=== PATIENT | male | born 1975 | race Hispanic/Latino ===

== ENCOUNTER 2021-01-23 08:44 | Emergency (ER) | payer BC ==
--- OUTSIDE RECORDS SUMMARY | 2021-01-23 08:48 | XMS REPORT | Continuity of Care Document ---
:1975 Author Organization [facility] t Address [address] [place] [address] Care Team Providers Name Role Phone Doctor Unassigned, Name Attending Clinician Unavailable Team, Health Maintenance Attending Clinician Unavailable Ayesha SCHMITZ, L Attending Clinician Shani Attending Clinician Sherwin Attending Clinician Sherwin Admitting Clinician Problems Condition Condition Condition Status Onset Resolution Last Treating Co mments Source Name Details Category Date Date Treatment Clinician Date HOSP F/U Diagnosis Active 2017-10-14 M emoria - 11:37:00 l HOSP F/U 00:00: Ben milton 00 Active 10/03/2017 [facility] Rhabdomyol Problem 2018-01-09 M emoria ysis 14:12:50 l Bruce Rhabdomyol ysis 01/09/201 8 [place] Hyperlipid Problem 2018-01-09 M emoria emia, 14:12:50 l unspecifie Ben n d Hyperlipid emia, unspecifie d 01/09/2018 [place] Essential Problem 2018-01-09 Me moria (primary) 14:12:50 l hypertensi Ben n on Essential (primary) hypertensi on 01/09/2018 [place] Adverse Problem 2018-01-09 Gopal alan effect of 14:12:50 l antihyperl Adverse Her rowe ipidemic effect of and antihyperl antiarteri ipidemic osclerotic and drugs, antiarteri initial osclerotic encounter drugs, initial encounter 01/09/2018 [place] Type 2 Problem 2018-01-09 Memor ia diabetes 14:12:50 l mellitus Type 2 Ben n without diabetes complicati mellitus ons without complicati ons 01/09/2018 [place] Nicotine Problem 2018-01-09 Mem oria dependence 14:12:50 l , Nicotine Ben n cigarettes dependence , , uncomplica cigarettes stephan , uncomplica stephan 01/09/2018 [place] 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 supervisor 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 2018-01-09 Me moria (current) 14:12:50 l use of Long [place] oral term hypoglycem (current) ic drugs use of oral hypoglycem ic drugs 01/09/2018 [place] 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 supervisor Problem 2018-01-09 Me moria (current) 14:12:50 l use of Long [place] aspirin term (current) use of aspirin 01/09/2018 [place] Other long Problem 2018-01-09 M emoria term 14:12:50 l (current) Other Ben n drug long term care social worker therapy (current) drug therapy 01/09/2018 [place] Dyslipidem Problem Resolve 2018-11-05 Memoria ia d 11:04:10 l (disorder) Ben n Dyslipidem ia (disorder) Resolved Problem 11/05/2018 [facility] [place] History of Problem Resolve 2018-11-05 Memoria - d 11:04:10 l hypertensi History Her rowe on of - (context-d hypertensi ependent on category) (context-d ependent category) Resolved Problem 11/05/2018 [facility], [place] Smokes Problem Resolve 2018-11-05 Gopal alan tobacco d 11:04:10 l daily Smokes [place] (finding) tobacco daily (finding) Resolved Problem 11/05/2018 3-4 cig/day [facility] [place] Diabetes Problem Active 2018-11-05 Mem oria mellitus 11:04:10 l (disorder) Diabetes He rmann mellitus (disorder) Active Problem 11/05/2018 [facility] [place] Abnormal Problem 2018-01-20 Mem oria electrocar 12:01:02 l diogram Abnormal Marlene nn [ECG] electrocar [EKG] diogram [ECG] [EKG] 01/20/2018 [facility] History of Past Illness Condition Condition Condition Status Onset Resolution Last Treating Co mments Source Name Details Category Date Date Treatment Clinician Date Other Problem 2018-01-20 2018-01-20 M emoria chest pain 4-10 12:01:02 12:01:02 l Other 03:06: Bruce chest pain 41 10/22/2017 01/20/2018 [facility], [place] Allergies, Adverse Reactions, Alerts This patient has no known allergies or adverse reactions. Social History Social Habit Start Date Stop Date Quantity Comments Source Social History 2017-10-14 2017-10-14 [facility] Radha jallohjulián 16:43:30 16:43:30 Medications Ordered Filled Start Stop Current Ordering Indication Dosage Frequency Signature Comments Components Source Medication Medication Date Date Medication? Clinician (SIG) Name Name Sodium No 2,000 mL, Memori a Chloride 3- 2000 l 0.9% 16:35: ml/hr, [place] (Bolus) IV 00 Infuse Over: 1 hr, Route: IV, 2,000, Drug form: INJ, ONCE, Priority: STAT, Dosing Weight 101.506 kg, Start date: 10/03/17 11:35:00 CDT, Stop date: 10/03/17 11:35:00 CDT Aspirin 81 2018-0 Yes 81 mg = 1 Me moria MG Chewable 3-22 tab, PO, l Tablet 15:57: Daily, # Bruce 00 30 tab, 0 Refill(s) Crestor 2018 No 10 mg, Memoria 3-22 Route: PO, l 02:00: Drug form: Bruce 00 TAB, Bedtime, Dosing Weight 101.506, kg, Start date: 10/02/17 21:00:00 CDT, Duration: 30 day, Stop date: 10/31/17 21:00:00 CDT normal 2017-0 No 1,000 mL, Memori a saline 0.9% 3 Rate: 125 l IV 1,000 mL 14:27: ml/hr, Herm julián 00 Infuse over: 8 hr, Route: IV, Dosing Weight 101.506 kg, Total Volume: 1,000, Start date: 10/02/17 9:27:00 CDT, Duration: 30 day, Stop date: 11/01/17 9:26:00 CDT, 2.15, m2 Aspirin No Notes: Memoria -21 Take with l 14:00: food. [place] 00 Protonix No Notes: For Mem oria 10-02 IV push l 14:00: reconstitu Bruce 00 te with 10 ml 0.9% sodium chloride and push over 2 minutes. (Same as: Protonix) Nitroglycer No Notes: Gopal alan in 10-02 (Same l 13:34: as:Nitroqu [place] 00 ick, Nitrostat) "Do Not Crush" Sublingual tablet Metformin Yes 1,000 mg, Mem oria 10-02 PO, BID, 0 l 04:54: Refill(s) Bruce 00 Rosuvastati No 10 mg = 1 M emoria n calcium 10-02 tab, PO, l 10 MG Oral 04:54: Bedtime, 0 H ermann Tablet 00 Refill(s) [Crestor] influenza No 0.5 mL, Memor ia virus 10-02 Route: IM, l vaccine, 03:08: Ben TALAMANTES n inactivated 24 Start date: 10/01/17 22:08:24 CDT, Stop date: 10/31/17 22:03:24 CDT Lovenox No Notes: Memoria - (Same as: l 02:00: Lovenox) Bruce 00 Pepcid No Notes: Memoria - (Same as: l 02:00: Pepcid) [place] 00 Can be dilute in 5-10cc NS IVP: Slow IV push over at least 2 minutes. Albuterol No Notes: Memori a 0.833 MG/ML 10-02 (Same as: l / 01:30: Duoneb) [place] Ipratropium 00 [place] 0.167 MG/ML Inhalant Solution [DuoNeb] Nitroglycer No Notes: Gopal alan in 10-02 (Same l 01:30: as:Nitroqu [place] 00 ick, Nitrostat) "Do Not Crush" Sublingual tablet Hydralazine No Notes: Gopal alan 3-21 (Same as: l 01:30: Apresoline ) Push over 5 minutes Acetaminoph No Notes: Gopal alan en 325 MG / 3-21 (Same as: l Hydrocodone 01:30: Addis Marlene nn Bitartrate 00 325/5) Do 5 MG Oral not exceed Tablet 4gm/day of acetaminop hen. Ondansetron No Notes: Gopal alan 3-21 (Same as: l 01:30: Zofran) MEDICATION WASTE Product Size: 4 mg Product Wasted: ___ mg Acetaminoph No Notes: Do M emoria en 3-21 not exceed l 01:30: 4 gm/day. (Same as: Tylenol) Insulin No Notes: Memoria Lispro -21 (Same as: l 01:30: Humalog ) Roll in palms of hands gently; Do not shake `vigorousl y. "Single Patient Use Only " WASTE: F/P - Black; E - Municipal Trash Bin Stable for 28 days at room temperatur e. Expires in days from ____Date Dextrose No 25 gm, 50 Gopal alan 50% Syringe 3-21 mL, Route: l 01:30: IVP, Drug Form: INJ, Dosing Weight 100.545, kg, PRN, PRN Blood Glucose Results, Start date: 10/01/17 20:30:00 CDT, Duration: 30 day, Stop date: 10/31/17 20:29:00 CDT Glucagon No 1 mg, Memoria 3-21 Route: IM, l 01:30: Drug form: PDR/INJ, PRN, Dosing Weight 100.545, kg, PRN Blood Glucose Results, Start date: 10/01/17 20:30:00 CDT, Duration: 30 day, Stop date: 10/31/17 20:29:00 CDT Aspirin No Notes: Memoria 3-20 Take with l 20:45: food. Saline No Notes: Memoria Flush 0.9% 3-20 (Same as: l 20:45: BD Bruce 00 Posiflush) Vital Signs Vital Name Observation Time Observation Value Comments Source BMI Calculated 2017-10-14 16:42:00 Memori al Bruce Height 2017-10-14 16:42:00 157.48 cm [facility] Weight 2017-10-14 16:42:00 [facility] [place] Systolic (mm Hg) 2017-10-14 16:42:00 Gopal rial [place] Diastolic (mm Hg) 2017-10-14 16:42:00 Mem orial [place] Heart Rate 2017-10-14 16:42:00 [facility] [place] Temperature Oral (F) 2017-10-14 16:42:00 97.2 F [facility] [place] Respitory Rate 2017-10-03 20:47:00 Memori al [place] Heart Rate 2017-10-03 20:47:00 [facility] [place] Systolic (mm Hg) 2017-10-03 20:47:00 Gopal rial [place] Diastolic (mm Hg) 2017-10-03 20:47:00 Mem orial [place] Temperature Oral (F) 2017-10-03 20:47:00 98.1 F [facility] [place] Systolic (mm Hg) 2017-10-03 16:49:00 Gopal rial Bruce Diastolic (mm Hg) 2017-10-03 16:49:00 Mem orial [place] Respitory Rate 2017-10-03 16:49:00 Memori al [place] Temperature Oral (F) 2017-10-03 16:49:00 98.4 F [facility] [place] Heart Rate 2017-10-03 16:49:00 [facility] Temperature Oral (F) 2017-10-03 12:39:00 97.8 F [facility] [place] Heart Rate 2017-10-03 12:39:00 [facility] [place] Respitory Rate 2017-10-03 12:39:00 Memori al [place] Systolic (mm Hg) 2017-10-03 12:39:00 Gopal rial [place] Diastolic (mm Hg) 2017-10-03 12:39:00 Mem orial [place] Weight 2017-10-02 02:44:00 [facility] [place] BMI Calculated 2017-10-02 02:44:00 Memori al [place] Height 2017-10-02 02:44:00 157.48 cm Wil Barrera Weight 2017-10-01 20:24:00 [facility] Bruce Procedures Procedure Date / Time Performed Performing Clinician Marcy e Appendectomy Wil Barrera Encounters Start End Encounter Admission Attending Care Care Encounter Source Date/Time Date/Time Type Type Clinicians Facility Department ID 2020-12-28 2020-12-28 Orders Doctor DRU [id number] 00:00:00 00:00:00 Only Unassigned, FUNMI [id number] [place] [facility] [id number] [id number] 2020-10-13 2020-10-13 Telephone Team, [facility] DRU [id number] 00:00:00 00:00:[id number] [facility] [id number] 2020-04-27 2020-04-27 Office [facility] [id number] 14:41:18 15:31:45 Visit Jaleel Velarde [employer] [id number] Surgical 4.2.7.2.686 Specialti [id number] es 198 [place] 2019-12-03 2019-12-03 [facility] [id number] 10:17:00 23:59:00 Encounter Jaleel Velarde [employer] [id number] Surgical 4.2.7.2.686 Specialti [id number] es 809 [place] 2019-12-03 2019-12-03 Office [facility] [id number] 10:04:20 10:34:28 Visit Jaleel Velarde [employer] [id number] Surgical 4.2.7.2.686 Specialti [id number] es 198 [place] 2019-12-03 2019-12-03 Telephone [facility] [id number] 00:00:00 00:00:00 Jaleel Velarde [employer] [id number] Surgical 4.2.7.2.686 Specialti [id number] es 198 [place] 2017-10-14 2018-04-18 Outpatient Shani, 2.16.840. [id number] 3 [id number] 15:33:50 11:30:00 Rustam [id number] 2017-10-14 2017-10-14 [facility] [id number] 11:25:00 23:59:00 Rustam 01 2017-10-01 2017-10-03 Out[facility] [id number] 15:20:00 18:00:00 Andrés 00 Results Test Description Test Time Test Comments Results Result Comments Source [facility]03 [facility] ENZYMES 2017-10-03 1956 [facility] Bruce 09:49:00 CARDIAC ENZYMES 2017-10-03 16.3 [facility] 09:49:00 CARDIAC ENZYMES 2017-10-03 09:49:00 Test Item Value Reference Range Interpretation Comme nts CK MB Index (test code = CK 0.8 1 See_Comment [Automated message] The system which MB Index) generated this result transmitted reference range : <=2.5. The reference range was not u sed to interpret this result as geronimo l/abnormal. [facility]annCARDIAC RINKRKG7522-02-14 09:49:118293Zatvrwvx HermannCHEM PANEL 2017-10-03 09:49:0083[facility] HermannCHEM CEWTK4774-55-85 09:49:64921Wpvtszmx HermannCHEM LUHIX4707-11-65 09:49:008.7[facility] HermannCHEM FCLRZ1910-40-09 09:49:0030[facility] HermannCHEM EMTPD0580-83-12 09:49:009.6[facility] HermannCHEM AGMND0204-58-34 09:49:45918Burtzhkx HermannCHEM HUKVD6616-54-96 09:49:0011 [facility]annCHEM HRYQP7955-74-52 09:49:11626Ywfsrpqj HermannCHEM PANEL 2017-10-03 09:49:001.09[facility] HermannCHEM ERHGI5264-96-18 09:49:003.6[facility] MzeehbqKGFUVHVSZR9903-21-43 09:49:57043Ihmvbqvx JdcyxekFRWSPCZPQO3275-49-14 09:49:008.7[facility] LdctqofRRCKKBTNWW5947-25-12 09:49:0014.8[facility] [place] PNLJRLPZBW7024-91-00 09:49:0087.3[facility] TvacduwCZZFQYSXPS3860-19-60 09:49:00 33.5[facility] QiwzeckPRZIQCOKNH9103-02-24 09:49:00 Test Item Value Reference Range Interpretation Comments MCH (test code = MCH) 29.3 pg 27.0-31.0 Memorial XsjypafWRULVILCDV7797-62-31 09:49:0034.0[facility] HermannHEMATOLOGY 2017-10-03 09:49:003.90[facility] JgslwehPSUUVGHPOA2173-95-13 09:49:0011.4[facility] AuibjrzFCDYAKBKWL8512-38-16 09:49:004.1[facility] WnpwkrjCUSUMLMSBB5027-43-84 07:05:0036.0[facility] KlveqamYPDIHANHPY9853-04-89 07:05:0011.8[facility] Bruce IDWQMIKRWQ3555-63-15 07:05:0087.9[facility] PuxtmzbTNWSCJTWPC5634-17-85 07:05:00 4.4[facility] BepdbfyAMXZJNZJGH0197-63-75 07:05:000.3[facility] HermannHEMATOLOGY 2017-10-02 07:05:000.2[facility] OdgoucgHSMTUJDEFV9325-94-03 07:05:0042.7[facility] UlqlvdyUKRNCMMAAJ5156-45-95 07:05:0046.9[facility] OjnmtcsDOFAHBOERI3537-66-65 07:05:005.7[facility] OrmxaxwOGOJBUKMOR6072-61-43 07:05:004.3[facility] Bruce ZEDBAANMKG8488-66-33 07:05:000.0[facility] RcrpftvPFROPHKOLK5015-75-51 07:05:000.4 [facility] UlykcedONBRACBIRT9394-94-26 07:05:002.1[facility] HermannHEMATOLOGY 2017-10-02 07:05:001.9[facility] IzhfhipNIAZOM7435-75-88 07:05:30640Mdltwhog UoaxfnhNXLPCT1387-78-61 07:05:17241Wfwhvyvm DmgnrosKOGTTJ9673-92-65 07:05:0047 Memorial AmayqazUQXIUI6745-16-09 07:05:00 Test Item Value Reference Range Interpretation Comments VLDL (test code = VLDL) 36 1 Memorial QqohdviAUPTEC7337-64-59 07:05:0087[facility] XgeppyvXTTEVC7816-86-80 07:05:00 Test Item Value Reference Range Interpretation Comments CHD Risk (test code = CHD Risk) 3.62 1 4.00-7.30 [facility] HermannSPECIAL KAUMFSOBP1600-54-78 07:05:007.7[facility] HermannCARDIAC JLYMVOG4378-62-48 07:05:0023.6[facility] HermannCARDIAC JLHAJLZ7043-42-34 07:05:00 Test Item Value Reference Range Interpretation Comments CK MB Index (test 1.0 1 See_Comment [Automate d message] The code = CK MB Index) system w [facility] generated this result transmit stephan reference range : <=2.5. The reference range was not used to interpr et this result as geronimo l/abnormal. [facility] HermannCARDIAC YIZEQJM0293-40-73 07:05:00<0.02[facility] HermannCHEM GCJFH5951-84-21 07:05:0089[facility] HermannCHEM BVIMY2481-68-73 07:05:23970 [facility]annCHEM UWDCS9535-21-63 07:05:0087[facility] HermannCHEM PANEL 2017-10-02 07:05:0064[facility] HermannCHEM XSUHO2796-35-51 07:05:004.2[facility] HermannCHEM LJVVV4433-66-00 07:05:008.1[facility] HermannCHEM PWABH3099-55-36 07:05:008.9[facility] HermannCHEM PVLLS4464-21-01 07:05:001.1[facility] HermannCHEM PFMJR3481-26-91 07:05:0010[facility] HermannCHEM ENPHU8437-12-83 07:05:24316 [facility]annCHEM YTECW3768-17-50 07:05:0030[facility] HermannCHEM PANEL 2017-10-02 07:05:003.5[facility] HermannCHEM JRYZV3998-44-74 07:05:001.03[facility] HermannCHEM SBBLL1537-98-71 07:05:23926Mzhfhbne HermannCHEM WQQSB9594-86-18 07:05:27510Vkhqyjpb HermannCHEM SODBY4021-30-18 07:05:003.9[facility] HermannCHEM PZPJO6424-88-22 07:05:00 Test Item Value Reference Range Interpretation Comments A/G Ratio (test code = A/G Ratio) 1.1 1 0.7-1.6 [facility] HermannCHEM YNSPF1495-80-50 07:05:00 Test Item Value Reference Range Interpretation Comments B/C Ratio (test code = B/C Ratio) 10 1 6-25 [facility] HermannCHEM ZQJKD6223-30-41 07:05:0010.5[facility] HermannHEMATOLOGY 2017-10-02 07:05:0032.9[facility] NscfxjvIHZVAPPFCG9393-40-78 07:05:00 Test Item Value Reference Range Interpretation Comments MCH (test code = MCH) 28.9 pg 27.0-31.0 [facility] OjtrdlfVTJKMTMKMU9338-65-89 07:05:0014.5[facility] HermannHEMATOLOGY 2017-10-02 07:05:008.3[facility] UlrnrrxWVZRNASRFI7511-83-51 07:05:23797Dyzzkxem BdtghgmDXNPNDIIKH1223-83-35 07:05:004.09[facility] HermannCARDIAC ENZYMES 2017-10-02 02:38:00<0.02[facility] HermannCARDIAC IRKAMZM4002-18-05 02:38:00 22.2[facility] HermannCARDIAC ROCURYQ1541-58-54 02:38:00 Test Item Value Reference Range Interpretation Comments CK MB Index (test 0.9 1 See_Comment [Automate d message] The code = CK MB Index) system w [facility] generated this result transmit stephan reference range : <=2.5. The reference range was not used to interpr et this result as geronimo l/abnormal. [facility] HermannCARDIAC RUWWNMG3253-43-12 00:51:00<0.02[facility] HermannCHEM KQRES1260-40-14 20:47:0079[facility] HermannCHEM UQDUB4822-00-51 20:47:00 Test Item Value Reference Range Interpretation Comments B/C Ratio (test code = B/C Ratio) 10 1 6-25 [facility] HermannCHEM RKJBA4185-09-54 20:47:004.3[facility] HermannCHEM PANEL 2017-10-01 20:47:00 Test Item Value Reference Range Interpretation Comments A/G Ratio (test code = A/G Ratio) 1.1 1 0.7-1.6 [facility] HermannCHEM KYYXE1472-53-23 20:47:001.1[facility] HermannCHEM PANEL 2017-10-01 20:47:37489Pcykizup HermannCHEM OWWXR8768-99-79 20:47:008.0[facility] HermannCHEM UXOFT5174-17-83 20:47:70593Hbvlvsxa HermannCHEM ZVRTA8844-04-39 20:47:0080[facility] HermannCHEM PVWFX9941-66-71 20:47:008.7[facility] HermannCHEM SPGTE8472-03-05 20:47:008.9[facility] HermannCHEM CDPIK6989-81-44 20:47:57786 [facility] HermannCHEM UOMSZ2951-60-37 20:47:0033[facility] HermannCHEM PANEL 2017-10-01 20:47:004.6[facility] HermannCHEM UDLRZ8245-63-80 20:47:004.0[facility] HermannCHEM JDUOU8466-43-92 20:47:0011[facility] HermannCHEM SAWEX9426-28-94 20:47:65676Qwcssraw HermannCHEM USMQJ7410-99-50 20:47:74262Ihcahdig HermannCHEM JOEKA8471-43-91 20:47:001.13[facility] EvozacbDKLBEQJVJJ1574-84-05 20:47:0033.3 Memorial FzuqvgnBBIGGZDTYI0301-71-31 20:47:0014.6[facility] HermannHEMATOLOGY 2017-10-01 20:47:55488Tifrgwag InwmikaLSEQTBZMQA7354-35-21 20:47:008.6[facility] AfvwipgPGOURDTDRI8510-64-37 20:47:004.30[facility] HglzqjgVVWLGHBVXI8102-54-67 20:47:004.5[facility] RaemhgpSKLWUFCIRP3904-80-70 20:47:0012.4[facility] [place] IXTFTYEAID6695-74-51 20:47:0037.4[facility] UjvjjwjBMGDUINCBL7712-74-83 20:47:00 86.8[facility] ThbyxjzOOJMRAOUBD4104-87-12 20:47:00 Test Item Value Reference Range Interpretation Comments MCH (test code = MCH) 28.9 pg 27.0-31.0 [facility] NkrsvcvZZAZIIAEFY3671-53-56 20:47:000.2[facility] HermannHEMATOLOGY 2017-10-01 20:47:000.0[facility] OuwgerkWXNQARTUHQ0436-54-93 20:47:000.2[facility] YmtauhyYCFTCSPAVF9280-18-78 20:47:004.1[facility] EdylehsIGZLNUPQVQ7095-84-46 20:47:003.7[facility] IidtmmuQPTKLBQZIF9864-65-37 20:47:0042.1[facility] Bruce OZGSOZABKS0710-92-33 20:47:002.2[facility] LugacejMRIMXVXVCT0942-25-88 20:47:001.9 [facility] BmmrcysUJEAEFXHDP8773-88-98 20:47:000.6[facility] HermannHEMATOLOGY 2017-10-01 20:47:0049.5[facility] [place]
[2021-01-23 09:22] LABS: Absolute Lymphocytes (CBC) 1.9 K/uL (0.7-4.9); Basophils % 1.4 % (0-1.3); Hematocrit 36.4 % (39.6-49.0); Lymphocytes % 39.4 % (15.3-44.8); MPV 9.3 fL (7.6-11.3)
[2021-01-23 09:30] LABS: Protime INR 1.03
[2021-01-23] MEDS ORDERED: MECLIZINE HCL 12.5 MG TAB ONE (09:37)
[2021-01-23] MEDS ORDERED: NA CHLORIDE 0.9% 1,000 ML ONE ×2 (09:38→10:47)
[2021-01-23] MEDS ORDERED: ONDANSETRON 4 MG/2 ML VIAL ONE (09:38)
--- NOTE | 2021-01-23 09:45 | RAD REPORT ---
EXAM DESCRIPTION: CT - Head Brain Wo Cont - 01/23/2021 9:29 am CLINICAL HISTORY: DIZZINESS Headache, drowsiness COMPARISON: Head angio dated 01/23/2021 TECHNIQUE: All CT scans are performed using dose optimization technique as appropriate and may inclu de automated exposure control or mA/KV adjustment according to patient size. FINDINGS: No intracranial hemorrhage, hydrocephalus or extra-axial fluid collection.No areas of brai n edema or evidence of midline shift. Mild mucosal thickening of the inferior maxillary antra. The paranasal sinuses and mastoids are other nielson clear. The calvarium is intact. IMPRESSION: No acute intracranial abnormality.
--- NOTE | 2021-01-23 09:50 | RAD REPORT ---
EXAM DESCRIPTION: CT - Head angio - 01/23/2021 9:28 am CLINICAL HISTORY: DIZZINESS Headache, drowsiness COMPARISON: No comparisons TECHNIQUE: CT angiography of the head was performed with MIPs. All CT scans are performed using dose optimization technique as appropriate and may include automated exposure control or mA/KV adjustment according to patient size. FINDINGS: No evidence of aneurysm is detected. No flow-limiting stenosis or vascular malformation id entified. Antegrade flow is seen in the vertebral arteries. The vertebral arteries are codominant. The visualized dural venous sinuses are patent. IMPRESSION: No significant flow abnormality is detected.
[2021-01-23 09:51] LABS: BUN Blood Urea Nitrogen 12 mg/dL (7-18); Bicarbonate 29 mmol/L (21-32); Glucose Level 306 mg/dL (74-106); Sodium Level 132 mmol/L (136-145); Troponin (Emerg Dept Use Only) < 0.02 ng/mL (0.0-0.045)
[2021-01-23 09:52] LABS: Urine Blood Negative (Negative); Urine Glucose Trace (Negative); Urine Protein Negative (Negative); Urine pH 5.5 (5.0-7.0)
--- NOTE | 2021-01-23 09:56 | RAD REPORT ---
EXAM DESCRIPTION: CT - Neck Angio - 01/23/2021 9:29 am CLINICAL HISTORY: dizziness Headache, drowsiness, dizziness COMPARISON: No comparisons TECHNIQUE: CT angiography of the neck vessels was performed with MIPs. All CT scans are performed using dose optimization technique as appropriate and may include automated exposure control or mA/KV adjustment according to patient size. FINDINGS: A left aortic arch is identified with normal three vessel configuration of the great vesse ls. No significant flow abnormality is seen of the common carotid bilaterally. No significant stenosis is identified involving the cervical segments of both internal carotid arteri es. Normal flow is seen within both vertebral arteries. IMPRESSION: No significant flow abnormality of the neck vessels is identified.
[2021-01-23 09:58] LABS: Creatine Phosphokinase 1402 U/L (39-308)
--- NOTE | 2021-01-23 10:21 | ER ---
Nurse's Notes [facility] Name: Salvador Perez Age: 45 yrs Sex: Male : 1975 Arrival Date: 01/23/2021 Time: 08:49 Bed 6 Private MD: Diagnosis: Dizziness and giddiness;Rhabdomyolysis-Mild;Diabetes mellitus due to underlying condition with hyperglycemia;Dehydration Presentation: 01/23 09:05 Chief complaint: Patient states: Became dizzy this morning while bending over to put on ph shoes, reports intermittent dizziness and nausea since, also reports pain in back of head, denies V/D or chest pain, hx of diabetes, daughter gave pt rice pudding then checked blood sugar, BGL at home 243. Coronavirus screen: Client denies travel out of the [place] in the last 14 days. At this time, the client does not indicate any symptoms associated with coronavirus-19. Ebola Screen: No symptoms or risks identified at this time. Initial Sepsis Screen: Does the patient meet any 2 criteria? No. Patient's initial sepsis screen is negative. Does the patient have a suspected source of infection? No. Patient's initial sepsis screen is negative. Risk Assessment: Do you want to hurt yourself or someone else? Patient reports no desire to harm self or others. Onset of symptoms was January 23, 2021. 09:05 Method Of Arrival: Ambulatory 09:05 Acuity: JUAN 3 ph Triage Assessment: 09:08 General: Appears in no apparent distress. comfortable, well groomed, Behavior is calm, ph cooperative, appropriate for age, Denies fever, feeling ill. Pain: Complains of pain in occipital area and base of the skull. 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 Full function Gait is steady, Speech is normal, Facial symmetry appears normal, Pupils are PERRLA, Reports dizziness, since this morning headache occipital area. Cardiovascular: Reports lightheadedness, nausea, Denies chest pain, shortness of breath, Capillary refill < 3 seconds in bilateral fingers Patient's skin is warm and dry. Respiratory: Airway is patent Respiratory effort is even, unlabored, Respiratory pattern is regular, symmetrical. GI: Reports nausea, this morning, denies at this time. Derm: Skin is intact, is healthy with good turgor, Skin is pink, warm \T\ dry. Musculoskeletal: Circulation, motion, and sensation intact. Range of motion: intact in all extremities. Historical: - Allergies: :07 Crestor; ph - Home Meds: 09:07 Metformin Oral [Active]; ph - PMHx: 09:07 Diabetes - NIDDM; Hyperlipidemia; Pancreatitis; ph - Immunization history:: Client reports having NOT received the Covid vaccine. - Social history:: Smoking status: Patient denies any tobacco usage or history of. - Family history:: not pertinent. - Hospitalizations: : No recent hospitalization is reported. Screenin:08 Abuse screen: Denies threats or abuse. Denies injuries from another. Nutritional ph screening: No deficits noted. Tuberculosis screening: No symptoms or risk factors identified. Fall Risk None identified. Assessment: 10:03 Reassessment: Patient appears in no apparent distress at this time. Patient and/or ph family updated on plan of care and expected duration. Pain level reassessed. Patient is alert, oriented x 3, equal unlabored respirations, skin warm/dry/pink. Pt denies dizziness or nausea at this time, VSS, daughter at bedside. 11:00 Reassessment: Patient appears in no apparent distress at this time. Patient and/or ph family updated on plan of care and expected duration. Pain level reassessed. Patient is alert, oriented x 3, equal unlabored respirations, skin warm/dry/pink. D/C pending completion of IV fluids. Vital Signs: 09:05 BP 111 / 83; Pulse 68; Resp 18; Temp 96.6(TE); Pulse Ox 98% on R/A; Weight 104.33 kg; ph Height 5 ft. 2 in. (157.48 cm); 10:04 BP 111 / 83; Pulse 64; Resp 18; Pulse Ox 97% on R/A; ph 11:00 BP 118 / 80; Pulse 67; Resp 18; Pulse Ox 98% on R/A; ph 12:00 BP 122 / 78; Pulse 65; Resp 19; Temp 97.2; Pulse Ox 99% on R/A; ph 09:05 Body Mass Index 42.07 (104.33 kg, 157.48 cm) ED Course: 08:49 Patient arrived in ED. mr 08:57 Cj Aldana MD is Attending Physician. rn 09:04 Paige Jarvis, JACOB is Primary Nurse. ph 09:07 Triage completed. ph 09:07 Arm band placed on Patient placed in an exam room, on a stretcher, on pulse oximetry. ph 09:08 Patient has correct armband on for positive identification. Bed in low position. Call ph light in reach. Side rails up X 1. gambling monitor on. Pulse ox on. NIBP on. Door closed. Noise minimized. 09:18 Initial lab(s) drawn, by ca, sent to lab. Inserted saline lock: in left antecubital 5 area, using aseptic technique. Blood collected. 09:19 Basic Metabolic Panel Sent. 5 09:19 CBC with Diff Sent. 5 09:19 CPK Sent. 5 09:20 Protime (+inr) Sent. 5 09:20 Ptt, Activated Sent. 5 09:20 Troponin (emerg Dept Use Only) Sent. 5 09:20 EKG done, by ED staff, reviewed by Cj Aldana MD. mh5 09:28 CT Head Angio In Process Unspecified. EDMS 09:28 CT Neck Angio In Process Unspecified. EDMS 09:29 CT Head Brain wo Cont In Process Unspecified. EDMS 10:19 Urine collected: clean catch specimen, clear. 5 12:00 No provider procedures requiring assistance completed. IV discontinued, intact, ph bleeding controlled, No redness/swelling at site. Pressure dressing applied. Administered Medications: 09:45 Drug: NS 0.9% 1000 ml Route: IV; Rate: 1000 ml; Site: right antecubital; ph 11:30 Follow up: Response: No adverse reaction; IV Status: Completed infusion; IV Intake: ph 1000ml 09:45 Drug: Meclizine 50 mg Route: PO; ph 10:29 Follow up: Response: No adverse reaction ph 09:45 Drug: Zofran (Ondansetron) 4 mg Route: IVP; Site: right antecubital; ph 10:29 Follow up: Response: No adverse reaction ph 10:29 Drug: NS 0.9% 1000 ml Route: IV; Rate: 1000 ml; Site: left antecubital; ph 12:00 Follow up: Response: No adverse reaction; IV Status: Completed infusion; IV Intake: ph 1000ml Intake: 11:30 IV: 1000ml; Total: 1000ml. ph 12:00 IV: 1000ml; Total: 2000ml. ph Outcome: 10:20 Discharge ordered by . rn 12:00 Discharged to home ambulatory, with family. ph 12:00 Condition: good 12:00 Discharge instructions given to patient, family, Instructed on discharge instructions, follow up and referral plans. Demonstrated understanding of instructions, follow-up care. 12:04 Patient left the ED. ph Signatures: Dispatcher [employer] Hilda Gore Roman, MD MD rn Hall, Patricia, RN RN ph Martinez, Maria [facility]
--- NOTE | 2021-01-23 10:21 | EDPHYS ---
Physician Documentation [facility] Name: Salvador Perez Age: 45 yrs Sex: Male : 1975 Arrival Date: 01/23/2021 Time: 08:49 Bed 6 Private MD: ED Physician Cj Aldana HPI: 01/23 09:06 This 45 yrs old Male presents to ER via Unassigned with complaints of rn Dizziness. 09:06 The patient presents with lightheadedness, sense of spinning. Onset: The rn symptoms/episode began/occurred this morning. Context: occurred at home, occurred while the patient was at rest, standing, just prior to the episode the patient experienced no apparent symptoms. Modifying factors: The symptoms are alleviated by holding head still, the symptoms are aggravated by movement of head, standing up, changing position. Associated signs and symptoms: Pertinent positives: nausea, Pertinent negatives: chest pain, combativeness, confusion, focal weakness, seizure. Severity of symptoms: At their worst the symptoms were moderate in the emergency department the symptoms have improved. The patient has not experienced similar symptoms in the past. The patient has not recently seen a physician. Reports got up from bed, getting ready, bent over to tie shoes, then got dizzy, lightheaded, mild nausea, only lasted for 2 min then got better, was going to go to work, then happened again, able to go downstairs, but felt like might fall. No focal weakness/numbness/speech change. Daughter gave some rice pudding and then checked glucose, was 200s. No fever/chest pain/sob/abd pain.. Historical: - Allergies: 09:07 Crestor; ph - Home Meds: 09:07 Metformin Oral [Active]; ph - PMHx: 09:07 Diabetes - NIDDM; Hyperlipidemia; Pancreatitis; ph - Immunization history:: Client reports having NOT received the Covid vaccine. - Social history:: Smoking status: Patient denies any tobacco usage or history of. - Family history:: not pertinent. - Hospitalizations: : No recent hospitalization is reported. ROS: 09:06 Constitutional: Negative for fever, chills, and weight loss, Eyes: Negative for injury, rn pain, redness, and discharge, Neck: Negative for injury, pain, and swelling, Cardiovascular: Negative for chest pain, palpitations, and edema, Respiratory: Negative for shortness of breath, cough, wheezing, and pleuritic chest pain, Abdomen/GI: Negative for abdominal pain, vomiting, diarrhea, and constipation, Back: Negative for injury and pain, : Negative for injury, bleeding, discharge, and swelling, MS/Extremity: Negative for injury and deformity, Skin: Negative for injury, rash, and discoloration, Neuro: Negative for weakness, numbness, tingling, and seizure, + headache 09:06 All other systems are negative. rn Exam: 09:06 Constitutional: This is a well developed, well nourished patient who is awake, alert, rn and in no acute distress. Eyes closed, answering all questions. Head/Face: Normocephalic, atraumatic. Eyes: Pupils equal round and reactive to light, extra-ocular motions intact. Lids and lashes normal. Conjunctiva and sclera are non-icteric and not injected. Cornea within normal limits. Periorbital areas with no swelling, redness, or edema. Neck: Trachea midline, no masses palpated, and no cervical lymphadenopathy. Supple, full range of motion without nuchal rigidity, or vertebral point tenderness. No Meningismus. Cardiovascular: Regular rate and rhythm. No pulse deficits. Respiratory: No increased work of breathing, no retractions or nasal flaring. Abdomen/GI: soft, non-tender, no masses Skin: Warm, dry MS/ Extremity: Pulses equal, no cyanosis. Neurovascular intact. Full, normal range of motion. Equal circumference. Neuro: Awake and alert, GCS 15, oriented to person, place, time, and situation. Cranial nerves II-XII grossly intact. Motor strength 5/5 in all extremities. Sensory grossly intact. Cerebellar exam normal. Normal gait, ambulated to room. 09:38 ECG was reviewed by the Attending Physician. rn Vital Signs: 09:05 BP 111 / 83; Pulse 68; Resp 18; Temp 96.6(TE); Pulse Ox 98% on R/A; Weight 104.33 kg; ph Height 5 ft. 2 in. (157.48 cm); 10:04 BP 111 / 83; Pulse 64; Resp 18; Pulse Ox 97% on R/A; ph 11:00 BP 118 / 80; Pulse 67; Resp 18; Pulse Ox 98% on R/A; ph 12:00 BP 122 / 78; Pulse 65; Resp 19; Temp 97.2; Pulse Ox 99% on R/A; ph 09:05 Body Mass Index 42.07 (104.33 kg, 157.48 cm) ph MDM: 08:57 Patient medically screened. rn 10:17 Differential diagnosis: cardiac arrhythmia, generalized weakness, hyperventilation, rn hypovolemia, idiopathic dizziness, near-syncope, vertigo, rhabdomyolysis, electrolyte disorder, hyperglycemia, DKA. Data reviewed: vital signs, nurses notes, lab test result(s), EKG, radiologic studies, CT scan, and as a result, I will discharge patient. Counseling: I had a detailed discussion with the patient and/or guardian regarding: the historical points, exam findings, and any diagnostic results supporting the discharge/admit diagnosis, lab results, radiology results, the need for outpatient follow up, to return to the emergency department if symptoms worsen or persist or if there are any questions or concerns that arise at home. Response to treatment: the patient's symptoms have markedly improved after treatment, No longer dizzy, feels much better, and as a result, I will discharge patient. Special discussion: I discussed with the patient/guardian in detail that at this point there is no indication for admission to the hospital. It is understood, however, that if the symptoms persist or worsen the patient needs to return immediately for re-evaluation. 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 Will dc home with instructions to drink more water and f/u with PCP for more DM management. . 01/23 09:05 Order name: Basic Metabolic Panel; Complete Time: 10:00 rn 01/23 09:05 Order name: CBC with Diff; Complete Time: :35 01/23 09:05 Order name: CPK; Complete Time: 10:00 rn 01/23 09:05 Order name: Protime (+inr); Complete Time: :35 rn 01/23 09:05 Order name: Ptt, Activated; Complete Time: 09:35 rn 01/23 09:05 Order name: Troponin (emerg Dept Use Only); Complete Time: 10:00 rn 01/23 09:05 Order name: CT Head Brain wo Cont; Complete Time: 10:00 rn 01/23 09:05 Order name: CT Head Angio; Complete Time: 10:00 rn 01/23 09:05 Order name: CT Neck Angio; Complete Time: 10:00 rn 01/23 09:52 Order name: Urine Dipstick-Ancillary; Complete Time: 10:00 EDMS 01/23 11:13 Order name: CREATININE WHOLE BLOOD; Complete Time: 11:56 EDMS 01/23 09:05 Order name: EKG; Complete Time: 09:06 rn 01/23 09:05 Order name: Cardiac monitoring; Complete Time: 10:01 rn 01/23 09:05 Order name: EKG - Nurse/Tech; Complete Time: 09:19 rn 01/23 09:05 Order name: IV Saline Lock; Complete Time: 09:19 rn 01/23 09:05 Order name: Labs collected and sent; Complete Time: 09:19 rn 01/23 09:05 Order name: O2 Per Protocol; Complete Time: 09:10 rn 01/23 09:05 Order name: O2 Sat Monitoring; Complete Time: 09:10 rn 01/23 09:05 Order name: Urine Dipstick-Ancillary (obtain specimen); Complete Time: 10:01 rn 01/23 09:05 Order name: Glucose Level; Complete Time: 09:59 rn EC:38 Rate is 56 beats/min. Rhythm is regular. Left axis deviation noted. QRS is positive in rn lead I and negative in lead aVF. OR interval is normal. QRS interval is normal. QT interval is normal. No Q waves. T waves are Normal. No ST changes noted. Clinical impression: Sinus bradycardia. Interpreted by me. Reviewed by me. Administered Medications: 09:45 Drug: NS 0.9% 1000 ml Route: IV; Rate: 1000 ml; Site: right antecubital; ph 11:30 Follow up: Response: No adverse reaction; IV Status: Completed infusion; IV Intake: ph 1000ml 09:45 Drug: Meclizine 50 mg Route: PO; ph 10:29 Follow up: Response: No adverse reaction ph 09:45 Drug: Zofran (Ondansetron) 4 mg Route: IVP; Site: right antecubital; ph 10:29 Follow up: Response: No adverse reaction ph 10:29 Drug: NS 0.9% 1000 ml Route: IV; Rate: 1000 ml; Site: left antecubital; ph 12:00 Follow up: Response: No adverse reaction; IV Status: Completed infusion; IV Intake: ph 1000ml Disposition Summary: 01/23/21 10:20 Discharge Ordered Location: Home rn Problem: new rn Symptoms: have improved rn Condition: Stable rn Diagnosis - Dizziness and giddiness rn - Rhabdomyolysis - Mild rn - Diabetes mellitus due to underlying condition with hyperglycemia rn - Dehydration rn Followup: rn - With: Private Physician - When: As needed - Reason: Recheck today's complaints, Re-evaluation by your physician Discharge Instructions: - Discharge Summary Sheet rn - Dehydration, Adult rn - Dizziness rn - Hyperglycemia rn - Rhabdomyolysis rn Forms: - Medication Reconciliation Form rn - Thank You Letter 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 Eyes closed, answering all questions. Head/Face: Normocephalic, atraumatic. Eyes: Pupils equal round and reactive to light, extra-ocular motions intact. Lids and lashes normal. Conjunctiva and sclera are non-icteric and not injected. Cornea within normal limits. Periorbital areas with no swelling, redness, or edema. Neck: Trachea midline, no masses palpated, and no cervical lymphadenopathy. Supple, full range of motion without nuchal rigidity, or vertebral point tenderness. No Meningismus. Cardiovascular: Regular rate and rhythm. No pulse deficits. Respiratory: No increased work of breathing, no retractions or nasal flaring. Abdomen/GI: soft, non-tender, no masses Skin: Warm, dry MS/ Extremity: Pulses equal, no cyanosis. Neurovascular intact. Full, normal range of motion. Equal circumference. Neuro: Awake and alert, GCS 15, oriented to person, place, time, and situation. Cranial nerves II-XII grossly intact. Motor strength 5/5 in all extremities. Sensory grossly intact. Cerebellar exam normal. rn
[2021-01-23 12:11] VITALS: BP 111/83; TEMP 96.6
[2021-01-23 12:13] VITALS: O2SAT 97
--- NOTE | 2021-01-23 16:05 | EKG ---
Test Date: 2021-01-23 Test Time: 09:36:44 Shoes Hand Sewer: BENITEZ MEASUREMENT RESULTS: Intervals: Rate: 56 FL: 182 QRSD: 120 QT: 454 QTc: 438 Kendall: P: 22 FL: 182 QRS: -51 T: 143 INTERPRETIVE STATEMENTS: Sinus bradycardia Left anterior fascicular block Possible Lateral infarct, age undetermined Abnormal ECG Compared to ECG 11/14/2016 11:03:13 Left anterior fascicular block now present Myocardial infarct finding still present Electronically Signed On 01-23-21 16:03:46 CDT by Leonardo Uribe
== END 2021-01-23 12:04 | disposition home or self-care (01) ==
LOC: ER 08:44
DX: E11.65 Type 2 diabetes mellitus with hyperglycemia (principal); M62.82 Rhabdomyolysis; E86.0 Dehydration; Z88.8 Allergy status to other drugs, medicaments and biological substances
CPT/HCPCS: 96361; 93005; 85025; 80048; 36415; 82550; 85610; 82565; 85730; 81003; 84484; 70450; 70496; 70498; 96374; 99284; Q9967; J7030 ×2; J2405

== ENCOUNTER 2024-02-19 11:29 | Emergency (ER) | payer BC ==
[2024-02-19] MEDS ORDERED: NA CHLORIDE 0.9% 1,000 ML ONE (12:15)
--- NOTE | 2024-02-19 12:26 | RAD REPORT ---
EXAM DESCRIPTION: RAD - Chest Single View - 02/19/2024 12:18 pm CLINICAL HISTORY: COUGH Chest pain. COMPARISON: CHEST SINGLE VIEW dated 04/07/2015; Head Brain Wo Cont dated 02/19/2024 FINDINGS: Portable technique limits examination quality. Interstitial markings are prominent bilaterally suggesting infection or bronchitis. Interstitial pulm onary edema would another possibility. The heart is normal in size. No displaced fractures.
--- NOTE | 2024-02-19 12:30 | RAD REPORT ---
EXAM DESCRIPTION: CT - Head Brain Wo Cont - 02/19/2024 12:10 pm CLINICAL HISTORY: Dizziness;Headache COMPARISON: Head Brain Wo Cont dated 01/23/2021; Head angio dated 01/23/2021 TECHNIQUE: All CT scans are performed using dose optimization technique as appropriate and may inclu de automated exposure control or mA/KV adjustment according to patient size. FINDINGS: No intracranial hemorrhage, hydrocephalus or extra-axial fluid collection.No areas of brai n edema or evidence of midline shift. The paranasal sinuses and mastoids are clear. The calvarium is intact. IMPRESSION: No acute intracranial abnormality.
[2024-02-19 12:33] LABS: Protime INR 1.07
[2024-02-19 12:38] LABS: Absolute Basophils 0.1 K/uL (0-0.5); Absolute Eosinophils 0.2 K/uL (0-0.5); Absolute Lymphocytes (CBC) 2.2 K/uL (0.7-4.9); Absolute Monocytes 0.2 K/uL (0.1-1.3); Basophils % 1.2 % (0-1.3); Eosinophils % 4.9 % (0-4.4); Hematocrit 33.2 % (39.6-49.0); Hemoglobin 10.9 g/dL (13.6-17.9); Lymphocytes % 47.3 % (15.3-44.8); MCH 29.8 pg (27.0-35.0); MCHC 32.9 g/dL (32.0-36.0); MCV 90.8 fL (80-100); Monocytes % 3.6 % (3.3-12.3); Platelets 202 thou/uL (152-406); RBC Red Blood Cell Count 3.66 M/uL (4.33-5.43); Red Cell Distribution Width 15.6 % (12.1-15.2)
[2024-02-19 12:46] LABS: Albumin 3.9 g/dL (3.4-5.0); Albumin/Globulin Ratio 0.8 (1.1-1.8); Anion Gap 8.1 mEq/L (5.0-15.0); Bilirubin Total 0.8 mg/dL (0.2-1.0); Globulin 4.8 g/dL (2.3-3.5); Potassium 4.1 mEq/L (3.5-5.1); Protein, Total 8.7 g/dL (6.4-8.2); Troponin High Sensitivity 9.9 pg/mL (<58.9)
--- NOTE | 2024-02-19 14:23 | ER ---
Nurse's Notes [facility] Name: Salvador Laureano Age: 48 yrs Sex: Male : 1975 Arrival Date: 02/19/2024 Time: 11:29 Bed 4 Private MD: Diagnosis: Anemia, unspecified;Epistaxis;Dizziness and giddiness;Weakness;Type 2 diabetes mellitus with hyperglycemia;Obesity, unspecified Presentation: 02/18 11:56 Chief complaint: Patient states: Nose bleeds everyday for the last month. Pt also cm10 reports headache and dizziness onset yesterday. Coronavirus screen: Client denies travel out of the [place] in the last 14 days. At this time, the client does not indicate any symptoms associated with coronavirus-19. Ebola Screen: Patient denies travel to an Ebola-affected area in the 21 days before illness onset. No symptoms or risks identified at this time. Initial Sepsis Screen: Does the patient meet any 2 criteria? No. Patient's initial sepsis screen is negative. Does the patient have a suspected source of infection? No. Patient's initial sepsis screen is negative. Risk Assessment: Do you want to hurt yourself or someone else? Patient reports no desire to harm self or others. Onset of symptoms was February 19, 2024. 11:56 Method Of Arrival: Ambulatory cm10 11:56 Acuity: JUAN 3 cm10 Triage Assessment: 11:57 General: Appears in no apparent distress. uncomfortable, Behavior is calm, cooperative. cm10 Neuro: No deficits noted. Level of Consciousness is awake, alert, obeys commands, Oriented to person, place, time, situation, Appropriate for age Reports dizziness, headache. 15:08 Pain: Also complains of no other associated symptoms. ar6 15:09 Headache History: Denies prior headaches. Pain: Denies pain. ar6 Historical: - Allergies: 11:57 Crestor; cm10 - PMHx: 11:57 Diabetes - NIDDM; Hyperlipidemia; Pancreatitis; cm10 - Immunization history:: Adult Immunizations up to date. - Infectious Disease History:: Denies. - Social history:: Smoking status: Patient reports the use of cigarette tobacco products, denies chronic smoking, but will smoke occasionally. Screenin:25 [facility] ED Fall Risk Assessment (Adult) History of falling in the last 3 months, ld1 including since admission No falls in past 3 months (0 pts) Confusion or Disorientation No (0 pts) Intoxicated or Sedated No (0 pts) Impaired Gait No (0 pts) Mobility Assist Device Used No (0 pt) Altered Elimination No (0 pt) Score/Fall Risk Level 0 - 2 = Low Risk. 12:28 Abuse screen: Denies threats or abuse. Denies injuries from another. ld1 12:28 Nutritional screening: No deficits noted. Tuberculosis screening: No symptoms or risk ld1 factors identified. Assessment: 12:30 General: Appears in no apparent distress. Behavior is calm, cooperative, Smells of ld1 Reports. 12:30 Neuro: No deficits noted. Neuro: No deficits noted. Level of Consciousness is awake, ld1 alert, obeys commands, Oriented to person, place, time, situation. Cardiovascular: No deficits noted. Cardiovascular: Capillary refill < 3 seconds Patient's skin is warm and dry. Respiratory: Airway is patent. GI: Abdomen is round non-distended. : No deficits noted. EENT: nares without blood at this time. 12:30 General: Appears in no apparent distress. comfortable, well groomed, well developed, kc6 Behavior is calm, cooperative, appropriate for age. Neuro: Level of Consciousness is awake, alert, obeys commands, Oriented to person, place, time, situation, Appropriate for age Reports dizziness, headache. Cardiovascular: Denies chest pain, shortness of breath, Capillary refill < 3 seconds. Respiratory: Airway is patent Trachea midline Respiratory effort is even, unlabored, Respiratory pattern is regular, symmetrical. GI: No signs and/or symptoms were reported involving the gastrointestinal system. : No signs and/or symptoms were reported regarding the genitourinary system. EENT: Reports nose bleed. Derm: No signs and/or symptoms reported regarding the dermatologic system. Skin is intact, is healthy with good turgor, Skin is pink, warm \T\ dry. Musculoskeletal: No signs and/or symptoms reported regarding the musculoskeletal system. Circulation, motion, and sensation intact. Capillary refill < 3 seconds, Range of motion: intact in all extremities. 13:30 Reassessment: Patient appears in no apparent distress at this time. No changes from kc6 previously documented assessment. Patient and/or family updated on plan of care and expected duration. Pain level reassessed. Patient is alert, oriented x 3, equal unlabored respirations, skin warm/dry/pink. 14:28 Reassessment: Patient appears in no apparent distress at this time. No changes from kc6 previously documented assessment. Patient and/or family updated on plan of care and expected duration. Pain level reassessed. Patient is alert, oriented x 3, equal unlabored respirations, skin warm/dry/pink. Vital Signs: 11:56 BP 93 / 57; Pulse 62; Resp 18; Temp 97.4; Pulse Ox 98% on R/A; Weight 92.08 kg; Height cm10 5 ft. 7 in. ; Pain 7/10; 12:25 BP 97 / 67; Pulse 55; Resp 16; Pulse Ox 95% on R/A; Weight 92.08 kg; Height 5 ft. 2 in. ld1 ; 13:29 BP 94 / 71; Pulse 57; Resp 15 S; Pulse Ox 96% on R/A; kc6 14:16 BP 91 / 55; Pulse 61; Resp 16 S; Pulse Ox 97% on R/A; kc6 14:25 BP 97 / 69 RA Supine (auto/reg); Pulse 57; kc6 14:25 BP 96 / 69 RA Sitting (auto/reg); Pulse 70; kc6 14:25 BP 94 / 66 RA Standing (man/reg); Pulse 65; kc6 15:07 BP 97 / 67; Pulse 60; Resp 16; Pulse Ox 99% on R/A; ar6 12:25 Body Mass Index 37.13 (92.08 kg, 157.48 cm) ld1 11:56 Pain Scale: Adult cm10 ED Course: 11:35 Patient arrived in ED. im 11:38 Brad Mcmahon MD is Attending Physician. mino 11:57 Triage completed. cm10 11:57 Arm band placed on Patient placed in an exam room. cm10 12:11 Maureen Perez, JACOB is Primary Nurse. kc6 12:12 CT Head Brain wo Cont In Process Unspecified. EDMS 12:19 Chest Single View XRAY In Process Unspecified. EDMS 12:24 No apparent distress. ld1 12:24 Patient has correct armband on for positive identification. Bed in low position. Call ld1 light in reach. Side rails up X2. 12:24 No provider procedures requiring assistance completed. Inserted saline lock: 20 gauge ld1 in left antecubital area, using aseptic technique. Blood collected. Flushed with 10 mL NS. 12:28 PT-INR Sent. ld1 12:28 Troponin HS Sent. ld1 12:28 Comprehensive Metabolic Panel Sent. ld1 12:28 CBC with Diff Sent. ld1 12:33 Troponin HS Sent. ld1 14:22 Dian Camarillo MD is Referral Physician. [facility] 14:27 Gareth Pleitez DO is Referral Physician. [facility] 15:08 Provided Education on: f/u care. ar6 15:08 IV discontinued, intact, bleeding controlled, No redness/swelling at site. Pressure ar6 dressing applied. Administered Medications: 12:23 Drug: NS 0.9% IV 1000 ml IV at 1 bolus Per protocol; 1000 mL bolus Route: IV; Rate: 1 ld1 bolus; Infused Over: 1 hrs; Site: left antecubital; Delivery: Primary tubing; 14:14 Follow up: Response: No adverse reaction; IV Status: Completed infusion; IV Intake: kc6 1000ml Medication: 15:09 VIS not applicable for this client. ar6 Intake: 14:14 IV: 1000ml; Total: 1000ml. kc6 Outcome: 14:23 Discharge ordered by . [facility] 15:08 Discharged to home ambulatory, ar6 15:08 Condition: good 15:08 Discharge instructions given to patient, significant other, Instructed on discharge instructions, follow up and referral plans. 15:09 Patient left the ED. ar6 Signatures: Dispatcher [employer] EDBrad Stockton MD MD cha Sims, Lauren, RN RN ld1 Maureen Perez RN RN kc6 Dalila Atkins Clarissa, RN RN cm10 Mamta Jaramillo RN RN ar6 Corrections: (The following items were deleted from the chart) 14:28 12:28 Pain: Denies pain. ld1 kc6 14:28 13:29 Reassessment: Patient appears in no apparent distress at this time. No changes kc6 from previously documented assessment. Patient and/or family updated on plan of care and expected duration. Pain level reassessed. Patient is alert, oriented x 3, equal unlabored respirations, skin warm/dry/pink. kc6
--- NOTE | 2024-02-19 14:24 | EDPHYS ---
Physician Documentation [facility] Name: Salvador Laureano Age: 48 yrs Sex: Male : 1975 Arrival Date: 02/19/2024 Time: 11:29 Bed 4 Private MD: ED Physician Brad Mcmahon HPI: 02/18 14:14 This 48 yrs old Male presents to ER via Ambulatory with complaints of Nose mino Bleed, Headache, Dizziness. 14:14 The patient presents with a nose bleed. Onset: The symptoms/episode began/occurred 1 mino month(s) ago. Modifying factors: The symptoms are alleviated by nothing. the symptoms are aggravated by nothing. Severity of symptoms: At their worst the symptoms were mild in the emergency department the symptoms have improved. The patient has experienced similar episodes in the past, multiple times. Historical: - Allergies: Crestor; cm10 - PMHx: : Diabetes - NIDDM; Hyperlipidemia; Pancreatitis; cm10 - Immunization history:: Adult Immunizations up to date. - Infectious Disease History:: Denies. - Social history:: Smoking status: Patient reports the use of cigarette tobacco products, denies chronic smoking, but will smoke occasionally. ROS: 14:15 Constitutional: Negative for fever, chills, and weight loss, Eyes: Negative for injury, mino pain, redness, and discharge, ENT: Negative for injury, pain, and discharge, Neck: Negative for injury, pain, and swelling, Cardiovascular: Negative for chest pain, palpitations, and edema, Respiratory: Negative for shortness of breath, cough, wheezing, and pleuritic chest pain, Abdomen/GI: Negative for abdominal pain, nausea, vomiting, diarrhea, and constipation, Back: Negative for injury and pain, : Negative for injury, bleeding, discharge, and swelling, MS/Extremity: Negative for injury and deformity, Skin: Negative for injury, rash, and discoloration, Psych: Negative for depression, anxiety, suicide ideation, homicidal ideation, and hallucinations, Allergy/Immunology: Negative for hives, rash, and allergies, Endocrine: Negative for neck swelling, polydipsia, polyuria, polyphagia, and marked weight changes, Hematologic/Lymphatic: Negative for swollen nodes, abnormal bleeding, and unusual bruising, 14:15 Neuro: Positive for dizziness, weakness, Exam: 14:15 Constitutional: This is a well developed, well nourished patient who is awake, alert, mino and in no acute distress. Head/Face: Normocephalic, atraumatic. Eyes: Pupils equal round and reactive to light, extra-ocular motions intact. Lids and lashes normal. Conjunctiva and sclera are non-icteric and not injected. Cornea within normal limits. Periorbital areas with no swelling, redness, or edema. Neck: Trachea midline, no thyromegaly or masses palpated, and no cervical lymphadenopathy. Supple, full range of motion without nuchal rigidity, or vertebral point tenderness. No Meningismus. Chest/axilla: Normal chest wall appearance and motion. Nontender with no deformity. No lesions are appreciated. Cardiovascular: Regular rate and rhythm with a normal S1 and S2. No gallops, murmurs, or rubs. Normal PMI, no JVD. No pulse deficits. Respiratory: Lungs have equal breath sounds bilaterally, clear to auscultation and percussion. No rales, rhonchi or wheezes noted. No increased work of breathing, no retractions or nasal flaring. Abdomen/GI: Soft, non-tender, with normal bowel sounds. No distension or tympany. No guarding or rebound. No evidence of tenderness throughout. Back: No spinal tenderness. No costovertebral tenderness. Full range of motion. Male : Normal genitalia with no discharge or lesions. MS/ Extremity: Pulses equal, no cyanosis. Neurovascular intact. Full, normal range of motion. Neuro: Awake and alert, GCS 15, oriented to person, place, time, and situation. Cranial nerves II-XII grossly intact. Motor strength 5/5 in all extremities. Sensory grossly intact. Cerebellar exam normal. Normal gait. Psych: Awake, alert, with orientation to person, place and time. Behavior, mood, and affect are within normal limits. 14:15 ENT: Nose: bleeding, is not appreciated, 14:15 Skin: Appearance: Color: pale, Vital Signs: 11:56 BP 93 / 57; Pulse 62; Resp 18; Temp 97.4; Pulse Ox 98% on R/A; Weight 92.08 kg; Height cm10 5 ft. 7 in. ; Pain 7/10; 12:25 BP 97 / 67; Pulse 55; Resp 16; Pulse Ox 95% on R/A; Weight 92.08 kg; Height 5 ft. 2 in. ld1 ; 13:29 BP 94 / 71; Pulse 57; Resp 15 S; Pulse Ox 96% on R/A; kc6 14:16 BP 91 / 55; Pulse 61; Resp 16 S; Pulse Ox 97% on R/A; kc6 14:25 BP 97 / 69 RA Supine (auto/reg); Pulse 57; kc6 14:25 BP 96 / 69 RA Sitting (auto/reg); Pulse 70; kc6 14:25 BP 94 / 66 RA Standing (man/reg); Pulse 65; kc6 15:07 BP 97 / 67; Pulse 60; Resp 16; Pulse Ox 99% on R/A; ar6 12:25 Body Mass Index 37.13 (92.08 kg, 157.48 cm) ld1 11:56 Pain Scale: Adult cm10 MDM: 11:38 Patient medically screened. [facility] 14:18 Differential diagnosis: spontaneous epistaxis. Data reviewed: vital signs, nurses mino notes, lab test result(s), EKG. I considered the following discharge prescriptions or medication management in the emergency department Medications were administered in the Emergency Department. See MAR. Independent interpretation of the following test(s) in the Emergency Department EKG: See my EKG interpretation above. Test considered but Not performed: Ultrasound no gb usg. Care significantly affected by the following chronic conditions: Diabetes, Hypertension, Obesity, pancreatitis. 02/18 12:01 Order name: CBC with Diff; Complete Time: 13:13 [facility] 02/18 12:01 Order name: Comprehensive Metabolic Panel; Complete Time: 13:13 [facility] 02/18 12:01 Order name: Troponin HS; Complete Time: 13:13 [facility] 02/18 12:01 Order name: PT-INR; Complete Time: 13:13 [facility] 02/18 12:01 Order name: CT Head Brain wo Cont; Complete Time: 13:13 [facility] 02/18 12:01 Order name: Chest Single View XRAY; Complete Time: 13:13 [facility] 02/18 12:01 Order name: EKG; Complete Time: 12:01 [facility] 02/18 12:01 Order name: EKG - Nurse/Tech; Complete Time: 12:27 [facility] 02/18 14:15 Order name: Orthostatics; Complete Time: 14:25 [facility] Administered Medications: 12:23 Drug: NS 0.9% IV 1000 ml IV at 1 bolus Per protocol; 1000 mL bolus Route: IV; Rate: 1 ld1 bolus; Infused Over: 1 hrs; Site: left antecubital; Delivery: Primary tubing; 14:14 Follow up: Response: No adverse reaction; IV Status: Completed infusion; IV Intake: kc6 1000ml Disposition Summary: 02/19/24 14:23 Discharge Ordered Notes: Location: Home mino Problem: new mino Symptoms: have improved mino Condition: Stable mino Diagnosis - Anemia, unspecified mino - Epistaxis mino - Dizziness and giddiness mino - Weakness mino - Type 2 diabetes mellitus with hyperglycemia mino - Obesity, unspecified mino Followup: mino - With: Private Physician - When: 2 - 3 days - Reason: Recheck today's complaints, Continuance of care, Re-evaluation by your physician Followup: mino - With: Dian Camarillo MD - When: 2 - 3 days - Reason: Recheck today's complaints, Re-evaluation by your physician Followup: mino - With: Gareth Pleitez DO - When: 2 - 3 days - Reason: Recheck today's complaints, Re-evaluation by your physician Discharge Instructions: - Discharge Summary Sheet mino - Anemia mino - Dizziness mino - Nosebleed, Adult mino - Obesity, Adult mino - Weakness mino - Weakness, [id number] mino - Nosebleed, Adult, [id number] mino Forms: - Medication Reconciliation Form mino - Antibiotic Education mino - Prescription Opioid Use mino - Patient Portal Instructions mino - Leadership Thank You Letter mino - Work release form em1 Signatures: Dispatcher [employer] EDBrad Stockton MD MD cha Sims, Lauren RN RN ld1 Tiffanie Jorge RN RN cm10 Maureen Perez RN kc6 Corrections: (The following items were deleted from the chart) 12:01 12:01 Head Brain Wo Cont+CT.RAD.BRZ ordered. EDMS EDMS 12:01 12:01 Chest Single View+RAD.RAD.BRZ ordered. EDMS EDMS
[2024-02-19 15:19] VITALS: TEMP 97.4
[2024-02-19 15:25] VITALS: BP 97/67; O2SAT 99
--- NOTE | 2024-02-20 13:08 | EKG ---
Test Date: 2024-02-19 Test Time: 12:25:04 Director Of Enterprise Strategy: ALIREZA MEASUREMENT RESULTS: Intervals: Rate: 55 MO: 128 QRSD: 118 QT: 462 QTc: 441 [place]: P: 11 MO: 128 QRS: -34 T: 43 INTERPRETIVE STATEMENTS: Sinus bradycardia Left axis deviation Low voltage QRS Nonspecific T wave abnormality Abnormal ECG No previous ECG available for comparison Electronically Signed On 02-20-24 13:05:32 CDT by Anastacio Pedro
== END 2024-02-19 15:09 | disposition home or self-care (01) ==
LOC: ER 11:29
DX: R04.0 Epistaxis (principal); D64.9 Anemia, unspecified; E11.65 Type 2 diabetes mellitus with hyperglycemia; R42 Dizziness and giddiness; R53.1 Weakness; E66.9 Obesity, unspecified; Z68.37 Body mass index [BMI] 37.0-37.9, adult
CPT/HCPCS: 85025; 36415; 85610; 84484; 80053; 70450; 71045; J7030; 93005